=== PATIENT | female | born 1985 | race Caucasian/White ===

== ENCOUNTER 2021-05-07 08:27 | Emergency (ER) | payer MEDICAID, OTHER ==
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
== END 2021-05-07 09:13 | disposition home or self-care (01) ==
LOC: JP.ED 08:27
DX: I47.1 Supraventricular tachycardia (principal); Z88.0 Allergy status to penicillin
CPT/HCPCS: 99284

== ENCOUNTER 2021-11-23 22:23 | Emergency (ER) | payer MEDICAID, OTHER ==
[2021-11-23] MEDS ORDERED: Nitroglycerin 0.4 MG Tab.SL SL PRN (22:56)
[2021-11-23] MEDS ORDERED: Lactated Ringers 1,000 ML IV SCH (23:00)
[2021-11-23] MEDS: LORazepam 2 MG/ML SDV IVPUSH ONE ×2 (23:31→23:40)
[2021-11-23] MEDS: Aspirin 81 MG Tab.Chew PO ONE ×2 (23:31→23:47)
[2021-11-24 00:55] LABS: CORONAVIRUS COVID-19 NAA NEGATIVE (NEGATIVE)
[2021-11-24] MEDS ORDERED: Sodium Chloride 0.9% 1,000 ML IV ONE (02:41)
[2021-11-24] MEDS ORDERED: Labetalol 100 MG/20 ML MDV IV ONE (04:31)
[2021-11-24] MEDS ORDERED: Labetalol 20 MG/4 ML Syringe ONE (04:37)
[2021-11-24] MEDS ORDERED: Labetalol 20 MG/4 ML Syringe IVPUSH ONE (04:41)
[2021-11-24] MEDS ORDERED: Atenolol 25 MG Tab PO ONE (07:06)
== END 2021-11-24 09:56 | disposition home or self-care (01) ==
LOC: JP.ED 22:23
DX: R07.89 Other chest pain (principal); F15.10 Other stimulant abuse, uncomplicated; R03.0 Elevated blood-pressure reading, without diagnosis of hypertension; Z88.0 Allergy status to penicillin; Z20.822 Contact with and (suspected) exposure to COVID-19
CPT/HCPCS: 0241U; 36415; 71045; 71045-26; 80053; 80305-QW; 80307; 84484; 85025; 93005; 93010; 96374; 96375; 99285; 99285-25; A9270-GY; J2060; J3490; J7030; J7120